=== PATIENT | female | born 2000 | race Hispanic/Latino ===

== ENCOUNTER 2018-03-22 19:41 | Emergency (ER) | payer SELFPAY ==
[2018-03-22 21:51] LABS: Bilirubin Negative (Negative); Blood, Urine Large (Negative); Clarity CLOUDY (Clear); Glucose, Urine (Dipstick) Negative (Negative); Leukocyte Moderate (Negative); Nitrite Negative (Negative); Protein, Urine (Dipstick) 100 mg/dL (Neg-Trace); Specific Gravity, Urine 1.015 (1.002-1.036); pH, Urine 7.5 (5.0-9.0)
[2018-03-22 21:58] LABS: Bacteria/HPF None Seen HPF (None Seen); Hyaline Casts/LPF 0-3 HYALINE CAST LPF (0-3 Hyaline); Pathc Cast-AUWi Flag 0.77 (0-2.49); Pregnancy Test - Urine (BHCG) Negative (Negative); Pregu Control Background? CLEAR/WHITE (CLR/WHITE); Pregu Control Bar Appear? YES (CONTROL BAR); Specific Gravity 1.015 (1.002-1.036)
[2018-03-22 22:03] LABS: Yeast-AUWi Flag 122.5 (0-25.0)
[2018-03-22 22:10] LABS: RBC/HPF GREATER THAN 50-TNTC HPF (0-3)
[2018-03-22] MEDS ORDERED: HYDROcodone/Acetaminophen 5/325 mg Tablet ONE (22:46)
== END 2018-03-22 22:51 | disposition home or self-care (01) ==
LOC: ERS 19:41
DX: N75.0 Cyst of Bartholin's gland (principal)
CPT/HCPCS: 81003; 81015; 81025; 99283